=== PATIENT | female | born 2000 | race Caucasian/White ===

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

== ENCOUNTER → 2022-01-12 | Outpatient (CLI) | payer OTHER ==
[~2022-01-12] MED LIST changes: +Cleocin HCl300 MG PO
[2022-01-12 17:48] LABS: BASOPHILS ABSOLUTE AUTO 0.05 K/mm3 (0.00-0.23); BASOPHILS PERCENT AUTO 1 % (0-2); EOSINOPHILS ABSOLUTE AUTO 0.14 K/mm3 (0.00-0.68); EOSINOPHILS PERCENT AUTO 2 % (0-6); Hematocrit 37.4 % (33.0-51.0); Hemoglobin 12.4 g/dL (11.5-16.0); IMMATURE GRAN ABSOLUTE AUTO 0.04 K/mm3 (0.00-0.10); IMMATURE GRAN PERCENT AUTO 0 % (0-1); LYMPHOCYTES ABSOLUTE AUTO 2.33 K/mm3 (0.84-5.20); LYMPHOCYTES PERCENT AUTO 25 % (21-46); MONOCYTES ABSOLUTE AUTO 0.71 K/mm3 (0.16-1.47); MONOCYTES PERCENT AUTO 8 % (4-13); Mean Corpuscular HGB 29.2 pg (26.0-34.0); Mean Corpuscular HGB Conc 33.2 g/dL (31.5-36.5); Mean Corpuscular Volume 88 fL (80-100); NEUTROPHILS ABSOLUTE AUTO 6.05 K/mm3 (1.96-9.15); NEUTROPHILS PERCENT AUTO 65 % (41-73); Platelet Count 309 K/mm3 (150-400); RDW Coefficient Variation 12.2 % (11.7-14.2); RDW Standard Deviation 39.4 fL (35.1-46.3); Red Blood Cell Count 4.24 M/mm3 (3.80-5.20); White Blood Cell Count 9.32 K/mm3 (4.00-11.30)
[2022-01-12 17:52] LABS: Bun/Creatinine Ratio 11.9 (12.0-20.0); Calcium, Blood 8.7 mg/dL (8.5-10.1); Creatinine, Blood 0.67 mg/dL (0.40-1.00); Potassium, Blood 3.7 mmol/L (3.5-5.5)
== END | disposition home or self-care (01) ==
LOC: LAB SHORT 17:42
PROVIDERS: Physician Assistant
DX: R07.81 Pleurodynia (principal)
CPT/HCPCS: 80048; 85025

== ENCOUNTER → 2023-05-17 | Outpatient (CLI) | payer BC, OTHER ==
[2023-05-17 17:12] LABS: Protein, Urine Quantitative 10.7 mg/dL (0.0-11.9)
== END ==
LOC: LAB 14:37 → LAB SHORT 14:37
PROVIDERS: Family Medicine
DX: O13.9 Gestational [pregnancy-induced] hypertension without significant proteinuria, unspecified trimester (principal); Z3A.00 Weeks of gestation of pregnancy not specified
CPT/HCPCS: 81050; 84156

== ENCOUNTER → 2023-05-31 | Outpatient (CLI) | payer BC, OTHER ==
[~2023-05-31] MED LIST changes: +LABE100 PO
== END | disposition home or self-care (01) ==
LOC: LAB 16:30 → LAB SHORT 16:30
DX: O13.9 Gestational [pregnancy-induced] hypertension without significant proteinuria, unspecified trimester (principal)
CPT/HCPCS: 87081; 87150

== ENCOUNTER 2023-06-03 19:36 | Inpatient (IN) | payer BC, OTHER ==
[~2023-06-03] VITALS: Ht 162.6 cm; Wt 101.0 kg
[~2023-06-03 19:36] MED LIST changes: -LABE100 PO
[2023-06-03] MEDS ORDERED: LABE100 PO (20:05)
[2023-06-03 20:51] VITALS: BP 118/80
[2023-06-03 21:32] LABS: BASOPHILS ABSOLUTE AUTO 0.04 K/mm3 (0.00-0.23); BASOPHILS PERCENT AUTO 0 % (0-2); EOSINOPHILS ABSOLUTE AUTO 0.08 K/mm3 (0.00-0.68); EOSINOPHILS PERCENT AUTO 1 % (0-6); Hematocrit 33.4 % (33.0-51.0); Hemoglobin 11.1 g/dL (11.5-16.0); IMMATURE GRAN ABSOLUTE AUTO 0.09 K/mm3 (0.00-0.10); IMMATURE GRAN PERCENT AUTO 1 % (0-1); LYMPHOCYTES ABSOLUTE AUTO 2.08 K/mm3 (0.84-5.20); LYMPHOCYTES PERCENT AUTO 23 % (21-46); MONOCYTES PERCENT AUTO 8 % (4-13); Mean Corpuscular HGB 30.7 pg (26.0-34.0); Mean Corpuscular HGB Conc 33.2 g/dL (31.5-36.5); Mean Corpuscular Volume 92 fL (80-100); Mean Platelet Volume 9.4 fL (9.1-12.4); NEUTROPHILS ABSOLUTE AUTO 5.99 K/mm3 (1.96-9.15); NEUTROPHILS PERCENT AUTO 67 % (41-73); Platelet Count 317 K/mm3 (150-400); RDW Coefficient Variation 13.7 % (11.7-14.2); RDW Standard Deviation 45.5 fL (35.1-46.3); Red Blood Cell Count 3.62 M/mm3 (3.80-5.20); White Blood Cell Count 8.98 K/mm3 (4.00-11.30)
[2023-06-03 21:58] VITALS: BP 132/73
[2023-06-03 22:53] VITALS: BP 133/74
[2023-06-04] VITALS (35 sets, daily range): BP systolic 102–138; BP diastolic 55–92
[2023-06-04 01:38] LABS: Creatinine, Urine Random 50.8 mg/dL (27.00-270.00); Protein, Urine Random 23.8 mg/dL (0.0-11.9); Protein/Creat Ratio, Ur Random 0.5
[2023-06-05] VITALS (10 sets, daily range): BP systolic 115–136; BP diastolic 58–85
[2023-06-05 10:48] LABS: Hematocrit 29.6 % (33.0-51.0); Hemoglobin 10.2 g/dL (11.5-16.0); Mean Corpuscular HGB 31.5 pg (26.0-34.0); Mean Corpuscular HGB Conc 34.5 g/dL (31.5-36.5); Mean Corpuscular Volume 91 fL (80-100); Platelet Count 266 K/mm3 (150-400); RDW Coefficient Variation 13.9 % (11.7-14.2); Red Blood Cell Count 3.24 M/mm3 (3.80-5.20); White Blood Cell Count 12.13 K/mm3 (4.00-11.30)
[2023-06-05 11:26] LABS: Albumin, Blood 2.5 g/dL (3.4-5.0); Albumin/Globulin Ratio 0.7 (0.8-1.8); Bilirubin, Total 0.3 mg/dL (0.1-1.0); Bun/Creatinine Ratio 11.5 (12.0-20.0); Calcium, Blood 8.9 mg/dL (8.5-10.1); Creatinine, Blood 0.52 mg/dL (0.40-1.00); Globulin, Blood 3.7 g/dL (2.2-4.0); Potassium, Blood 3.4 mmol/L (3.5-5.5); Total Protein, Blood 6.2 g/dL (6.4-8.2)
[2023-06-06 00:31] VITALS: BP 122/58
[2023-06-06 04:36] VITALS: BP 115/61
[2023-06-06 07:29] VITALS: BP 122/59
[2023-06-06 10:12] VITALS: BP 127/73
--- NOTE | 2023-06-10 11:22 | NUR ---
PPFU. PT PPFU DONE VIA PHONE. PT STATES HER MILK IS IN. LAST WAS YESTERDAY AND SHE IS PASSING GAS. PT STATES HER BLEEDING IN LIGHTENING, RED IN COLOR. PT STATES SHE HAS HAD A MILD HEADACHE THAT IS RELIEVED WITH IBUPROFEN. PT DENIES BLURRED VISION OR DIZZINESS. PT DENIES NUMBNESS OR TINGLING IN HANDS OR FEED. PT STATES SHE HAS SOME SWELLING IN HER FEET AND ANKLES. PT DENIES RED, HOT, TENDER SPOTS IN BACK OF KNEES OR CLAVES. PT STATES SHE HAS BEEN TAKING HER OWN BP AND HOME AND IT HAS BEEN WITH IN NORMAL LIMITS. PT HAS MD F/U APPOINTMENT SCEDULED. TALKED W/ PT ABOUT INCREASING BP AND WHEN TO CONTACT HER PROVIDER. PT VERBALIZED UNDERSTANDING, DENIES ANY FURTHER QUESTIONS OR CONCERNS.
== END 2023-06-06 10:20 | disposition home or self-care (01) | DRG 807 ==
LOC: OBS 19:36 → BC 19:37 → OBS 19:46 → BC 21:50
PROVIDERS: ADMIT Family Medicine
PROC: 10E0XZZ Delivery of Products of Conception, External Approach (ICD-10-PCS; principal; 2023-06-05)
PROC: 0KQM0ZZ Repair Perineum Muscle, Open Approach (ICD-10-PCS; 2023-06-05)
PROC: 3E0R3BZ Introduction of Anesthetic Agent into Spinal Canal, Percutaneous Approach (ICD-10-PCS; 2023-06-05)
PROC: 00HU33Z Insertion of Infusion Device into Spinal Canal, Percutaneous Approach (ICD-10-PCS; 2023-06-05)
DX: O13.4 Gestational [pregnancy-induced] hypertension without significant proteinuria, complicating childbirth (principal); Z37.0 Single live birth; Z3A.37 37 weeks gestation of pregnancy; O14.04 Mild to moderate pre-eclampsia, complicating childbirth; O99.334 Smoking (tobacco) complicating childbirth; F17.210 Nicotine dependence, cigarettes, uncomplicated; O99.02 Anemia complicating childbirth; D50.9 Iron deficiency anemia, unspecified; O99.324 Drug use complicating childbirth; F12.90 Cannabis use, unspecified, uncomplicated; O70.1 Second degree perineal laceration during delivery
CPT/HCPCS: 36415; 51702; 80053; 82570; 83615; 84156; 85025; 85027; 86850; 86900; 86901; 86923; A9270; J1885; J2405; J7120